=== PATIENT | female | born 1940 | race Caucasian/White ===

== ENCOUNTER → 2018-10-24 | Outpatient (CLI) | payer MEDICARE, OTHER ==
[~2018-10-24] VITALS: Ht 157.5 cm; Wt 68.6 kg
[~2018-10-24] MED LIST: DYAZIDE 37.5-21 EACH PO; ZIAC 5-6.25 MG1 EACH PO
[2018-10-24 11:41] LABS: EOS # 0.1 (0.04-0.40); HEMATOCRIT 40.5 % (37.0-47.0); HEMOGLOBIN 13.5 g/dL (12.5-16.0); LYMPH# 1.5 (1.50-4.00); MEAN CELL VOLUME 100 fl (78-100); MEAN CORPUSCULAR HEMOGLOBIN 33 pg (27-31); MEAN CORPUSCULAR HGB CONC 33 g/dL (33-37); MEAN PLATELET VOLUME 7.9 fl (7.4-10.4); MONO # 0.7 (0.20-0.80); NEU # 3.7 (1.40-6.50); PLATELET COUNT 379 K/mm3 (130-400); RED BLOOD COUNT 4.04 M/mm3 (4.10-5.30); RED CELL DISTRIBUTION WIDTH 13.4 % (11.5-14.5); WHITE BLOOD COUNT 6.1 K/mm3 (4.8-10.8)
[2018-10-24 11:57] LABS: ALBUMIN 3.9 g/dL (3.4-4.8); CALCIUM 9.9 mg/dL (8.3-10.5); POTASSIUM 3.8 mmol/L (3.5-5.1); TOTAL BILIRUBIN 0.8 mg/dL (0.2-1.2); TOTAL PROTEIN 6.8 g/dL (6.2-8.1)
[2018-10-24 12:21] VITALS: BP 167/74
[2018-10-24 13:28] LABS: URINE APPEARANCE HAZY; URINE BILIRUBIN NEGATIVE (NEGATIVE); URINE BLOOD NEGATIVE (NEGATIVE); URINE COLOR YELLOW; URINE GLUCOSE NEGATIVE (NEGATIVE); URINE KETONE NEGATIVE (NEGATIVE); URINE NITRATE NEGATIVE (NEGATIVE); URINE PROTEIN(semi-quant) 1+ mg/dL (NEGATIVE); URINE UROBILINOGEN NORMAL (NORMAL)
[2018-10-24 13:29] LABS: URINE LEUKOCYTE ESTERASE NEGATIVE (NEGATIVE)
== END ==
LOC: AMSURD 11:19
PROVIDERS: Nurse Practitioner
DX: I10 Essential (primary) hypertension (principal); R42 Dizziness and giddiness

== ENCOUNTER → 2018-11-01 | Outpatient (CLI) | payer MEDICARE, OTHER ==
[2018-10-24 12:21] VITALS: BP 167/74
[2018-11-01 17:11] LABS: ALBUMIN 4.1 g/dL (3.4-4.8); CALCIUM 9.9 mg/dL (8.3-10.5); POTASSIUM 3.5 mmol/L (3.5-5.1); TOTAL BILIRUBIN 0.5 mg/dL (0.2-1.2); TOTAL PROTEIN 6.8 g/dL (6.2-8.1)
== END ==
LOC: LAB 16:14
PROVIDERS: Internal Medicine
DX: Z12.11 Encounter for screening for malignant neoplasm of colon (principal); I10 Essential (primary) hypertension; K90.9 Intestinal malabsorption, unspecified; E78.2 Mixed hyperlipidemia; R20.2 Paresthesia of skin

== ENCOUNTER → 2018-11-25 | Outpatient (CLI) | payer MEDICARE, OTHER ==
[2018-10-24 12:21] VITALS: BP 167/74
== END ==
LOC: LAB 10:08
DX: Z12.11 Encounter for screening for malignant neoplasm of colon (principal); K90.9 Intestinal malabsorption, unspecified; I10 Essential (primary) hypertension

== ENCOUNTER → 2019-03-06 | Outpatient (CLI) | payer MEDICARE, OTHER ==
[2018-10-24 12:21] VITALS: BP 167/74
[2019-03-06 11:36] LABS: HEMATOCRIT 42.1 % (37.0-47.0); MEAN CELL VOLUME 102 fl (78-100); MEAN CORPUSCULAR HEMOGLOBIN 34 pg (27-31); MEAN CORPUSCULAR HGB CONC 33 g/dL (33-37); MEAN PLATELET VOLUME 8.3 fl (7.4-10.4); PLATELET COUNT 376 K/mm3 (130-400); RED BLOOD COUNT 4.12 M/mm3 (4.10-5.30)
[2019-03-06 11:41] LABS: ALBUMIN 4.1 g/dL (3.4-4.8); POTASSIUM 3.7 mmol/L (3.5-5.1)
[2019-03-06 11:42] LABS: CALCIUM 9.3 mg/dL (8.3-10.5)
[2019-03-06 11:43] LABS: TOTAL PROTEIN 7.1 g/dL (6.2-8.1)
[2019-03-06 11:45] LABS: TOTAL BILIRUBIN 0.3 mg/dL (0.2-1.2)
[2019-03-06 11:49] LABS: LYMPHOCYTE 32 % (20-51); MONOCYTE 10 % (3-10); NEUTROPHILS 46 % (42-75)
== END ==
LOC: LAB 11:22
PROVIDERS: Internal Medicine
DX: I10 Essential (primary) hypertension (principal); E78.2 Mixed hyperlipidemia; R42 Dizziness and giddiness

== ENCOUNTER → 2019-03-27 | Outpatient (CLI) | payer MEDICARE, OTHER ==
[2018-10-24 12:21] VITALS: BP 167/74
[2019-03-27 10:34] LABS: POTASSIUM 3.8 mmol/L (3.5-5.1)
[2019-03-27 10:35] LABS: CALCIUM 9.4 mg/dL (8.3-10.5)
== END ==
LOC: LAB 10:09
PROVIDERS: Internal Medicine
DX: I10 Essential (primary) hypertension (principal)

== ENCOUNTER → 2019-05-04 | Outpatient (CLI) | payer MEDICARE, OTHER ==
[2018-10-24 12:21] VITALS: BP 167/74
== END ==
LOC: CARDREHAB 14:54
DX: G47.10 Hypersomnia, unspecified (principal); G47.8 Other sleep disorders; I10 Essential (primary) hypertension
CPT/HCPCS: G0399

== ENCOUNTER → 2020-02-09 | Outpatient (CLI) | payer MEDICARE, OTHER ==
[2018-10-24 12:21] VITALS: BP 167/74
== END ==
LOC: RAD 09:43
DX: I10 Essential (primary) hypertension (principal); R06.02 Shortness of breath; R09.89 Other specified symptoms and signs involving the circulatory and respiratory systems
CPT/HCPCS: A9500

== ENCOUNTER → 2020-03-12 | Outpatient (CLI) | payer MEDICARE, OTHER ==
[2018-10-24 12:21] VITALS: BP 167/74
== END ==
LOC: LAB 16:22
DX: K90.9 Intestinal malabsorption, unspecified (principal)

== ENCOUNTER → 2021-09-16 | Outpatient (CLI) | payer MEDICARE, OTHER ==
[2021-09-16 14:37] LABS: ALBUMIN 4.6 g/dL (3.4-4.8); POTASSIUM 3.8 mmol/L (3.5-5.1)
[2021-09-16 14:38] LABS: CALCIUM 10.1 mg/dL (8.3-10.5)
[2021-09-16 14:39] LABS: BASO # 0.04 K/mm3 (0.02-0.10); EOS # 0.31 K/mm3 (0.04-0.40); EOS % 4.2 % (1.0-5.0); HEMATOCRIT 41.6 % (37.0-47.0); HEMOGLOBIN 13.6 g/dL (12.5-16.0); MEAN CELL VOLUME 107 fl (78-100); MEAN CORPUSCULAR HEMOGLOBIN 35 pg (27-31); MEAN CORPUSCULAR HGB CONC 33 g/dL (33-37); MONO # 0.87 K/mm3 (0.20-0.80); NEU # 4.19 K/mm3 (1.40-6.50); PLATELET COUNT 333 K/mm3 (130-400); RED BLOOD COUNT 3.89 M/mm3 (4.10-5.30); RED CELL DISTRIBUTION WIDTH 14.3 % (11.5-14.5); WHITE BLOOD COUNT 7.3 K/mm3 (4.8-10.8)
[2021-09-16 14:40] LABS: TOTAL PROTEIN 7.5 g/dL (6.2-8.1)
[2021-09-16 14:41] LABS: TOTAL BILIRUBIN 0.4 mg/dL (0.2-1.2)
[2021-09-16 14:46] LABS: MAGNESIUM 2.54 mg/dL (1.60-2.60)
[2021-09-16 22:19] LABS: T3 FREE 2.4 pg/mL (1.7-3.7)
== END ==
LOC: LAB 14:18
PROVIDERS: Internal Medicine
DX: K90.9 Intestinal malabsorption, unspecified (principal); E78.2 Mixed hyperlipidemia; I10 Essential (primary) hypertension

== ENCOUNTER → 2023-01-26 | Outpatient (CLI) | payer MEDICARE, OTHER ==
[2023-01-26 16:13] LABS: URINE WBC 0 /hpf (0-3)
[2023-01-26 16:26] LABS: BASO # 0.03 K/mm3 (0.02-0.10); EOS # 0.16 K/mm3 (0.04-0.40); EOS % 2.8 % (1.0-5.0); HEMOGLOBIN 14.4 g/dL (12.5-16.0); LYMPH# 1.62 K/mm3 (1.50-4.00); MEAN CELL VOLUME 108 fl (78-100); MEAN CORPUSCULAR HEMOGLOBIN 35 pg (27-31); MEAN CORPUSCULAR HGB CONC 33 g/dL (33-37); MEAN PLATELET VOLUME 7.9 fl (7.4-10.4); MONO # 0.62 K/mm3 (0.20-0.80); PLATELET COUNT 327 K/mm3 (130-400); RED BLOOD COUNT 4.08 M/mm3 (4.10-5.30); RED CELL DISTRIBUTION WIDTH 14.2 % (11.5-14.5); WHITE BLOOD COUNT 5.6 K/mm3 (4.8-10.8)
[2023-01-26 16:32] LABS: ALBUMIN 4.6 g/dL (3.4-4.8); POTASSIUM 3.6 mmol/L (3.5-5.1)
[2023-01-26 16:34] LABS: CALCIUM 9.8 mg/dL (8.3-10.5); TOTAL PROTEIN 7.3 g/dL (6.2-8.1)
[2023-01-26 16:36] LABS: TOTAL BILIRUBIN 0.2 mg/dL (0.2-1.2)
[2023-01-26 16:39] LABS: PROTHROMBIN TIME 9.8 SECONDS (9.0-12.0)
[2023-01-26 16:41] LABS: MAGNESIUM 2.59 mg/dL (1.60-2.60)
[2023-01-26 16:45] LABS: URINE APPEARANCE CLEAR; URINE BILIRUBIN NEGATIVE (NEGATIVE); URINE BLOOD NEGATIVE (NEGATIVE); URINE COLOR YELLOW; URINE GLUCOSE NEGATIVE (NEGATIVE); URINE KETONE NEGATIVE (NEGATIVE); URINE LEUKOCYTE ESTERASE NEGATIVE (NEGATIVE); URINE NITRATE NEGATIVE (NEGATIVE); URINE PROTEIN(semi-quant) TRACE (NEGATIVE); URINE UROBILINOGEN NORMAL (NORMAL)
== END ==
LOC: LAB 15:56
PROVIDERS: Internal Medicine
DX: Z01.818 Encounter for other preprocedural examination (principal); L71.9 Rosacea, unspecified

== ENCOUNTER → 2024-07-13 | Outpatient (CLI) | payer MEDICARE ==
[2024-07-13 09:13] LABS: BASO # 0.03 K/mm3 (0.02-0.10); EOS # 0.35 K/mm3 (0.04-0.40); EOS % 5.7 % (1.0-5.0); HEMATOCRIT 41.8 % (37.0-47.0); HEMOGLOBIN 13.6 g/dL (12.5-16.0); LYMPH# 1.16 K/mm3 (1.50-4.00); MEAN CELL VOLUME 104 fl (78-100); MEAN CORPUSCULAR HEMOGLOBIN 34 pg (27-31); MEAN CORPUSCULAR HGB CONC 33 g/dL (33-37); MEAN PLATELET VOLUME 8.5 fl (7.4-10.4); MONO # 0.55 K/mm3 (0.20-0.80); NEU # 4.09 K/mm3 (1.40-6.50); PLATELET COUNT 272 K/mm3 (130-400); RED BLOOD COUNT 4.01 M/mm3 (4.10-5.30); RED CELL DISTRIBUTION WIDTH 14.3 % (11.5-14.5); WHITE BLOOD COUNT 6.2 K/mm3 (4.8-10.8)
[2024-07-13 09:22] LABS: CALCIUM 9.3 mg/dL (8.3-10.5)
== END ==
LOC: LAB 08:51 → AMSURD 08:51
DX: Z01.818 Encounter for other preprocedural examination (principal); I10 Essential (primary) hypertension